=== PATIENT | female | born 1990 | race African-American/Black ===

== ENCOUNTER 2017-06-20 16:21 | Emergency (ER) | payer SELFPAY ==
--- NOTE | 2017-06-20 19:51 | RAD ---
TWO VIEWS NECK SOFT TISSUES: Date: 06-20-17 History: Right neck swelling and pain since one day ago. FINDINGS: Prevertebral soft tissues are within normal limits. No radiopaque foreign body is seen. There are ga s densities seen anterior to the T1-2 level which project above the level of the clavicles and are s een posterior to the tracheal air shadow. Findings may be related to herniation of each lung apex dorsey periorly. Osseous structures are intact. IMPRESSION: 1. No acute findings are noted. 2. Metallic densities overlying upper chest which could be related to overlying artifact. Clinical c orrelation is recommended as these metallic densities project slightly posterior to the sternum on l ateral view. 3. No radiopaque foreign body or other soft tissue abnormality is seen. Epiglottis and aryepiglottic folds have a normal appearance. POS: [facility]
== END 2017-06-20 19:30 | disposition home or self-care (01) ==
LOC: ERS 16:21
DX: J02.9 Acute pharyngitis, unspecified (principal)
CPT/HCPCS: 70360; 87081; 87430

== ENCOUNTER 2017-12-15 22:30 | Emergency (ER) | payer OTHER, SELFPAY ==
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
[2017-12-15 23:39] LABS: #Basophils 0.1 thou/uL (0.0-0.2); #Lymphocytes 2.3 thou/uL (1.20-3.40); #Monocytes 0.3 thou/uL (0.11-0.59); #Neutrophils 7.4 thou/uL (1.40-6.50); %Eosinophils 0.4 % (0.0-10.0); %Lymphocytes 22.5 % (21.0-51.0); %Monocytes 3.3 % (0.0-10.0); %Neutrophils 72.9 % (42.0-75.0); Mean Corpuscular HGB CONC 32.8 g/dL (32.0-36.0); Mean Corpuscular Hemoglobin 27.6 pg (27.0-31.0); Mean Corpuscular Volume 84.2 fl (81.0-99.0); Mean Platelet Volume 6.7 fL (7.4-10.4); Platelet Count 260 thou/uL (130-400); RBC Distribution Width 12.4 % (11.5-14.5); Red Blood Cell (RBC) Count 4.35 mill/uL (4.20-5.40); White Blood Cell (WBC) Count 10.2 thou/uL (4.8-10.8)
[2017-12-15] MEDS ORDERED: Ondansetron HCl/PF 4 MG/2 ML Vial ONE (23:40)
[2017-12-15] MEDS ORDERED: Morphine 10 MG/ML VIAL ONE (23:40)
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
[2017-12-16] LABS: ALT (SGPT) 13 U/L (8-55); AST (SGOT) 15 U/L (5-34); Albumin 4.7 g/dL (3.5-5.0); Alkaline Phosphatase 43 U/L (40-150); Anion Gap 11 mmol/L (10-20); BUN (Urea Nitrogen) 12 mg/dL (7.0-18.7); Bilirubin, Total 1.2 mg/dL (0.2-1.2); Calc. Creatinine Clearance 0 mL/min (70-130); Calcium 9.6 mg/dL (7.8-10.44); Carbon Dioxide 26 mmol/L (22-29); Chloride 106 mmol/L (98-107); Estimated GFR-MDRD Greater than 90; Globulin 2.8 g/dL (2.4-3.5); Glucose 97 mg/dL (70-105); Potassium 3.6 mmol/L (3.5-5.1); Protein, Total 7.5 g/dL (6.0-8.3); Sodium 139 mmol/L (136-145)
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
[2017-12-16] MEDS ORDERED: Morphine 4 MG/ML VIAL ONE (00:09)
[2017-12-16 00:50] LABS: BHCG - Serum Negative (NEGATIVE); Pregs Control Background? CLEAR/WHITE (CLR/WHITE); Pregs Control Bar Appear? YES (CONTROL BAR)
[2017-12-16] MEDS ORDERED: Adacel (T-DAP) 0.5 ML VIAL ONE (01:01)
[2017-12-16] MEDS ORDERED: Ketorolac Tromethamine 30 MG/ML VIAL ONE (01:28)
[2017-12-16] MEDS ORDERED: Bacitracin Zinc 1 Packet ONE (02:08)
== END 2017-12-16 03:15 | disposition home or self-care (01) ==
LOC: ERS 22:30
DX: S01.112A Laceration without foreign body of left eyelid and periocular area, initial encounter (principal); S50.01XA Contusion of right elbow, initial encounter; V43.62XA Car passenger injured in collision with other type car in traffic accident, initial encounter
CPT/HCPCS: 12013; 70486; 72125; 80053; 84703; 85025; 90471; 90715; 96361; 96374; 96375; J1885; J2270; J2405

== ENCOUNTER 2017-12-23 16:28 | Emergency (ER) | payer OTHER, SELFPAY ==
[2017-12-23] MEDS ORDERED: Bacitracin Zinc 1 Packet ONE (16:52)
== END 2017-12-23 16:53 | disposition home or self-care (01) ==
LOC: ERS 16:28
DX: S01.112D Laceration without foreign body of left eyelid and periocular area, subsequent encounter (principal)

== ENCOUNTER 2018-04-10 15:37 | Emergency (ER) | payer SELFPAY ==
[2018-04-10 16:51] LABS: Bilirubin Negative (Negative); Blood, Urine Negative (Negative); Clarity CLEAR (Clear); Glucose, Urine (Dipstick) Negative (Negative); Leukocyte Negative (Negative); Nitrite Negative (Negative); Protein, Urine (Dipstick) Negative (Neg-Trace); Specific Gravity, Urine 1.022 (1.002-1.036); pH, Urine 7.5 (5.0-9.0)
[2018-04-10 16:53] LABS: Pregnancy Test - Urine (BHCG) Negative (Negative); Pregu Control Background? CLEAR/WHITE (CLR/WHITE); Pregu Control Bar Appear? YES (CONTROL BAR); Specific Gravity 1.022 (1.002-1.036)
[2018-04-10 17:34] LABS: #Basophils 0.1 thou/uL (0.0-0.2); #Lymphocytes 2.8 thou/uL (1.20-3.40); #Monocytes 0.4 thou/uL (0.11-0.59); #Neutrophils 4.6 thou/uL (1.40-6.50); %Eosinophils 0.5 % (0.0-10.0); %Lymphocytes 35.4 % (21.0-51.0); %Neutrophils 58.1 % (42.0-75.0); Hemoglobin 12.5 g/dL (12.0-16.0); Mean Corpuscular HGB CONC 33.2 g/dL (32.0-36.0); Mean Corpuscular Volume 84.1 fL (78.0-98.0); Mean Platelet Volume 6.3 fL (7.4-10.4); Platelet Count 255 thou/uL (130-400); RBC Distribution Width 12.4 % (11.5-14.5); Red Blood Cell (RBC) Count 4.47 mill/uL (4.20-5.40)
[2018-04-10 17:58] LABS: ALT (SGPT) 28 U/L (8-55); AST (SGOT) 21 U/L (5-34); Albumin 4.4 g/dL (3.5-5.0); Alkaline Phosphatase 48 U/L (40-150); Anion Gap 11 mmol/L (10-20); BUN (Urea Nitrogen) 11 mg/dL (7.0-18.7); Bilirubin, Total 1.3 mg/dL (0.2-1.2); Calc. Creatinine Clearance 0 mL/min (70-130); Calcium 9.1 mg/dL (7.8-10.44); Carbon Dioxide 24 mmol/L (22-29); Chloride 107 mmol/L (98-107); Estimated GFR-MDRD Greater than 90; Globulin 3.2 g/dL (2.4-3.5); Glucose 77 mg/dL (70-105); Lipase 48 U/L (8-78); Protein, Total 7.6 g/dL (6.0-8.3); Sodium 138 mmol/L (136-145)
--- NOTE | 2018-04-10 22:23 | ULT ---
PELVIC ULTRASOUND WITH DOPPLER: HISTORY: Pelvic pain. TECHNIQUE: Transabdominal, transvaginal, winslow-scale, color-flow, and spectral Doppler. FINDINGS: The uterus measures 8.2 x 3.9 x 4.4 cm without focal mass or endometrial fluid. The endometrium emilia ures 6 mm in thickness. The right ovary measures 2.8 x 1.6 x 1.9 cm, and the left ovary measures 2.9 x 2.5 x 2.3 cm. A 1 cm cyst is seen in the right ovary. Flow is demonstrated in both ovaries. There is a tiny amount of fr ee fluid in the cul-de-sac. IMPRESSION: Tiny amount of free fluid in the pelvis; otherwise, unremarkable examination. POS: [facility]
[2018-04-10] MEDS ORDERED: cefTRIAXone\\ROCEPHIN 1 GM VIAL ONE (23:07)
[2018-04-10] MEDS ORDERED: Azithromycin 500 MG VIAL ONE (23:07)
[2018-04-10] MEDS ORDERED: Azithromycin 250 MG TAB ONE (23:08)
[2018-04-10] MEDS ORDERED: Lidocaine 1% PF 5 ML VIAL ONE (23:10)
[2018-04-11 23:04] LABS: Chlamydia by PCR Not Detected (NotDetected); GC by PCR Not Detected (NotDetected)
== END 2018-04-10 23:37 | disposition home or self-care (01) ==
LOC: ERS 15:37
DX: R10.2 Pelvic and perineal pain (principal)
CPT/HCPCS: 36415; 76856; 80053; 81003; 81025; 83690; 85025; 87480; 87491; 87510; 87591; 87660; 93976; 96372; J0456; J0696; J2001

== ENCOUNTER 2018-09-29 19:10 | Emergency (ER) | payer SELFPAY ==
[2018-09-29 20:02] LABS: Bilirubin Negative (Negative); Blood, Urine Trace (Negative); Clarity TURBID (Clear); Glucose, Urine (Dipstick) Negative (Negative); Leukocyte Negative (Negative); Nitrite Negative (Negative); Protein, Urine (Dipstick) Negative (Neg-Trace); Specific Gravity, Urine 1.024 (1.002-1.036)
[2018-09-29 20:04] LABS: Pregnancy Test - Urine (BHCG) Negative (Negative); Pregu Control Background? CLEAR/WHITE (CLR/WHITE); Pregu Control Bar Appear? YES (CONTROL BAR); Specific Gravity 1.024 (1.002-1.036)
[2018-09-29 20:05] LABS: Bacteria/HPF None Seen HPF (None Seen); Hyaline Casts/LPF 0-3 HYALINE CAST LPF (0-3 Hyaline); Pathc Cast-AUWi Flag 0.29 (0-2.49); Squamous Epithelial 0-3 HPF (0-3); WBC/HPF 0-3 HPF (0-3)
== END 2018-09-29 20:47 | disposition home or self-care (01) ==
LOC: ERS 19:10
DX: N93.9 Abnormal uterine and vaginal bleeding, unspecified (principal)
CPT/HCPCS: 81003; 81015; 81025; 99284

== ENCOUNTER 2019-05-23 11:44 | Emergency (ER) | payer SELFPAY ==
[2019-05-23 12:11] LABS: #Basophils 0.1 thou/uL (0.0-0.2); #Eosinphils 0.1 thou/uL (0.0-0.7); #Lymphocytes 3.1 thou/uL (1.20-3.40); #Monocytes 0.4 thou/uL (0.11-0.59); #Neutrophils 4.4 thou/uL (1.40-6.50); %Basophils 1.3 % (0.0-1.0); %Eosinophils 0.7 % (0.0-10.0); %Lymphocytes 38.4 % (21.0-51.0); %Monocytes 5.3 % (0.0-10.0); %Neutrophils 54.3 % (42.0-75.0); Hemoglobin 12.9 g/dL (12.0-16.0); Mean Corpuscular HGB CONC 33.1 g/dL (32.0-36.0); Mean Corpuscular Hemoglobin 27.9 pg (27.0-31.0); Mean Corpuscular Volume 84.3 fL (78.0-98.0); Mean Platelet Volume 7.1 fL (7.4-10.4); Platelet Count 250 thou/uL (130-400); RBC Distribution Width 12.4 % (11.5-14.5); Red Blood Cell (RBC) Count 4.61 mill/uL (4.20-5.40); White Blood Cell (WBC) Count 8.1 thou/uL (4.8-10.8)
[2019-05-23 12:18] LABS: Bacteria/HPF None Seen HPF (None Seen); Bilirubin Negative (Negative); Blood, Urine 1+ (Negative); Clarity Clear (Clear); Glucose, Urine (Dipstick) Normal (Negative); Leukocyte Negative Leu/uL (Negative); Nitrite Negative (Negative); Protein, Urine (Dipstick) Negative (Neg-Trace); RBC/HPF 0-3 HPF (0-3); Squamous Epithelial 0-3 HPF (0-3); Urobilinogen Normal mg/dL (Less than 2); WBC/HPF 0-3 HPF (0-3)
[2019-05-23 12:22] LABS: Pregnancy Test - Urine (BHCG) Negative (Negative); Pregu Control Background? CLEAR/WHITE (CLR/WHITE); Pregu Control Bar Appear? YES (CONTROL BAR); Specific Gravity 1.021 (1.002-1.036)
[2019-05-23 12:35] LABS: ALT (SGPT) 12 U/L (8-55); AST (SGOT) 14 U/L (5-34); Albumin 4.5 g/dL (3.5-5.0); Alkaline Phosphatase 42 U/L (40-150); Anion Gap 11 mmol/L (10-20); BUN (Urea Nitrogen) 7 mg/dL (7.0-18.7); Bilirubin, Total 1.1 mg/dL (0.2-1.2); Calc. Creatinine Clearance 0 mL/min (70-130); Calcium 9.5 mg/dL (7.8-10.44); Carbon Dioxide 24 mmol/L (22-29); Chloride 104 mmol/L (98-107); Estimated GFR-MDRD Greater than 90; Globulin 2.6 g/dL (2.4-3.5); Glucose 83 mg/dL (70-105); Lipase 41 U/L (8-78); Potassium 3.5 mmol/L (3.5-5.1); Protein, Total 7.1 g/dL (6.0-8.3); Sodium 135 mmol/L (136-145)
[2019-05-23] MEDS ORDERED: Sucralfate 1 GM/10 ML UDCUP ONE (13:57)
[2019-05-23] MEDS ORDERED: Acetaminophen 500 MG TAB ONE (14:40)
== END 2019-05-23 14:45 | disposition home or self-care (01) ==
LOC: ERS 11:44
DX: R10.12 Left upper quadrant pain (principal); R10.11 Right upper quadrant pain; R19.7 Diarrhea, unspecified; R11.0 Nausea
CPT/HCPCS: 36415; 80053; 81003; 81015; 81025; 83690; 85025; 99284

== ENCOUNTER 2019-09-10 18:32 | Emergency (ER) | payer SELFPAY | END 2019-09-10 20:02 | disposition home or self-care (01) | LOC: ERS 18:32 | DX: M65.4 Radial styloid tenosynovitis [de Quervain] (principal) | CPT/HCPCS: 87804; 99283 ==

== ENCOUNTER 2020-07-24 08:47 | Emergency (ER) | payer SELFPAY ==
[2020-07-24] MEDS ORDERED: Ketorolac Tromethamine 30 MG/ML VIAL ONE (10:24)
[2020-07-24 10:58] LABS: BHCG - Serum Negative (NEGATIVE); Pregs Control Background? CLEAR/WHITE (CLR/WHITE); Pregs Control Bar Appear? YES (CONTROL BAR)
[2020-07-24 11:04] LABS: ALT (SGPT) 7 U/L (8-55); AST (SGOT) 15 U/L (5-34); Albumin 4.2 g/dL (3.5-5.0); Alkaline Phosphatase 36 U/L (40-110); Anion Gap 12 mmol/L (10-20); BUN (Urea Nitrogen) 10 mg/dL (7.0-18.7); Bilirubin, Total 1.2 mg/dL (0.2-1.2); Calc. Creatinine Clearance 0 mL/min (70-130); Calcium 9.1 mg/dL (7.8-10.44); Carbon Dioxide 26 mmol/L (22-29); Chloride 104 mmol/L (98-107); Estimated GFR-MDRD Greater than 90; Glucose 86 mg/dL (70-105); Lipase 27 U/L (8-78); Potassium 4.2 mmol/L (3.5-5.1); Protein, Total 7.2 g/dL (6.0-8.3); Sodium 138 mmol/L (136-145)
[2020-07-24 11:13] LABS: Bilirubin Negative (Negative); Blood, Urine Negative (Negative); Clarity Clear (Clear); Glucose, Urine (Dipstick) Normal (Negative); Ketone, Urine Negative (Negative); Leukocyte Negative Leu/uL (Negative); Nitrite Negative (Negative); Protein, Urine (Dipstick) Negative (Neg-Trace); Specific Gravity, Urine 1.012 (1.002-1.036); Urobilinogen Normal mg/dL (Less than 2)
[2020-07-24 11:22] LABS: Band 1 % (5-11); Eosinophils 2 % (0-10); Hemoglobin 12.9 g/dL (12.0-16.0); Lymphocytes 37 % (21-51); MDiff Complete? YES; Mean Corpuscular HGB CONC 32.3 g/dL (32.0-36.0); Mean Corpuscular Hemoglobin 27.8 pg (27.0-31.0); Mean Corpuscular Volume 86.2 fL (78.0-98.0); Mean Platelet Volume 7.5 fL (7.4-10.4); Monocytes 4 % (0-10); Neutrophil 56 % (42-75); Platelet Count 242 thou/uL (130-400); RBC Distribution Width 12.2 % (11.5-14.5); RBC Morphology Normal; Red Blood Cell (RBC) Count 4.62 mill/uL (4.20-5.40); White Blood Cell (WBC) Count 6.1 thou/uL (4.8-10.8)
--- NOTE | 2020-07-24 11:26 | CT ---
Exam: Abdomen CT without contrast Pelvic CT without contrast HISTORY: Abdominal pain, starting this morning. COMPARISON: None FINDINGS: Abdomen CT: Lung bases:Clear Heart size: Normal heart size Aorta: Normal caliber Solid organs: Limited evaluation by the absence of IV contrast. Grossly no solid organ abnormal bowel Lymph nodes: No gastrohepatic, retrocrural or periportal lymphadenopathy Gallbladder: No CT evidence of cholecystitis Mesentery: No mass, lymphadenopathy, free air or free fluid Kidneys: Bilaterally, no hydronephrosis,, right-sided nephrolithiasis or perinephric fat stranding. B ilateral ureters have a normal caliber. No hydroureter, periureteral fat stranding or ureterolithiasis. Nonobstructing calculi in the left renal pelvis measuring between 0.2 and 0.3 cm. Alimentary canal: Limited evaluation by the lack of oral contrast. Normal caliber bowel loops. Normal ileocecal junction. Normal caliber appendix. Note, cecal apex is low-lying of the appendix is advanced in the left lower quadrant. Scattered fecal material in a nondistended, nondilated colon. CT PELVIS: There is a small amount of complex fluid in the right hemipelvis with attenuation coefficient of 29 H ounsfield units. Grossly unremarkable uterus and left adnexa. There are hypodensities in the right adnexa which may represent right ovarian cyst, measuring 3.0 x 2.5 cm. Urinary bladder: Unremarkable. Osseous structures: No lytic or blastic lesions IMPRESSION: 1. Normal caliber appendix 2. Nonobstructing left renal calculi 3. Hypodensity in the right adnexa with complex fluid in the right hemipelvis. Correlate for possible rupture the ovarian cyst with pelvic ultrasound.
--- NOTE | 2020-07-24 12:27 | ULT ---
Exam: Pelvic ultrasound HISTORY: Abnormal CT abdomen and pelvis demonstrating low density lesion right adnexa. COMPARISON: Noncontrast CT abdomen and pelvis on 07/24/2020 and prior pelvic ultrasound 04/10/2018. TECHNIQUE: Multiple grayscale and color Doppler images were obtained in a transabdominal pelvic ultra sound. Spectral analysis of the Doppler waveforms of the ovaries were performed. FINDINGS: CERVIX: Unremarkable UTERUS: Normal in size without focal abnormality. ENDOMETRIAL STRIPE: 13 mm which is within normal limits for a normal menstruating female patient. No fluid or fluid collection is seen in the endometrial canal. No free fluid is appreciated in the pelvis on this examination correspond to complex fluid in the pos terior right aspect of the pelvis on recent CT exam. RIGHT OVARY: Normal flow. A small 2.7 cm oval-shaped anechoic structure is seen in the right ovary wi th characteristics suggestive of a cyst. LEFT OVARY: Normal flow, without focal mass. IMPRESSION: 1. Small right ovarian cyst with flow demonstrated in the right ovary. 2. Normal-appearing left ovary. 3. No free fluid is seen on pelvic ultrasound is suggested on the recent CT exam. This could be relat ed to difficulty in visualization given more posteriorly located fluid on the CT exam.
== END 2020-07-24 13:03 | disposition home or self-care (01) ==
LOC: ERS 08:47
DX: N83.201 Unspecified ovarian cyst, right side (principal)
CPT/HCPCS: 36415; 74176; 76856; 80053; 81003; 83690; 84703; 85025; 93976; 96374; J1885

== ENCOUNTER 2021-07-08 07:06 | Emergency (ER) | payer SELFPAY ==
[2021-07-08] MEDS ORDERED: Meclizine HCl 25 MG TAB ONE (07:50)
[2021-07-08] MEDS ORDERED: Ketorolac Tromethamine 30 MG/ML VIAL ONE (07:50)
[2021-07-08] MEDS ORDERED: Metoclopramide 10 MG/10 ML UDCUP ONE (07:50)
[2021-07-08] MEDS ORDERED: Metoclopramide HCl 10 MG/2 ML VIAL ONE (07:51)
[2021-07-08 08:11] LABS: #Basophils 0.1 thou/uL (0.0-0.2); #Eosinphils 0.1 thou/uL (0.0-0.7); #Monocytes 0.4 thou/uL (0.11-0.59); #Neutrophils 6.1 thou/uL (1.40-6.50); %Basophils 1.1 % (0.0-1.0); %Eosinophils 0.8 % (0.0-10.0); %Lymphocytes 22.8 % (21.0-51.0); %Monocytes 4.3 % (0.0-10.0); Hemoglobin 14.2 g/dL (12.0-16.0); Mean Corpuscular HGB CONC 33.6 g/dL (32.0-36.0); Mean Corpuscular Hemoglobin 28.5 pg (27.0-31.0); Mean Corpuscular Volume 84.9 fL (78.0-98.0); Mean Platelet Volume 6.9 fL (7.4-10.4); Platelet Count 266 thou/uL (130-400); Red Blood Cell (RBC) Count 4.98 mill/uL (4.20-5.40); White Blood Cell (WBC) Count 8.6 thou/uL (4.8-10.8)
[2021-07-08 08:36] LABS: ALT (SGPT) 16 U/L (8-55); AST (SGOT) 14 U/L (5-34); Albumin 4.8 g/dL (3.5-5.0); Alkaline Phosphatase 40 U/L (40-110); Anion Gap 12 mmol/L (10-20); BUN (Urea Nitrogen) 10 mg/dL (7.0-18.7); Bilirubin, Total 1.6 mg/dL (0.2-1.2); Calc. Creatinine Clearance 0 mL/min (70-130); Calcium 9.8 mg/dL (7.8-10.44); Carbon Dioxide 27 mmol/L (22-29); Chloride 103 mmol/L (98-107); Globulin 3.3 g/dL (2.4-3.5); Glucose 90 mg/dL (70-105); Potassium 3.6 mmol/L (3.5-5.1); Protein, Total 8.1 g/dL (6.0-8.3); Sodium 138 mmol/L (136-145)
== END 2021-07-08 09:30 | disposition home or self-care (01) ==
LOC: ERS 07:06
DX: R07.81 Pleurodynia (principal); R42 Dizziness and giddiness; R51.9 Headache, unspecified; R10.30 Lower abdominal pain, unspecified
CPT/HCPCS: 36416; 70450; 71045; 80053; 84484; 85025; 93005; J1885; J2765

== ENCOUNTER 2022-05-24 09:03 | Emergency (ER) | payer SELFPAY ==
[2022-05-24] MEDS ORDERED: Dexameth. Sod Phosp. 10 MG/ML (CHEMO USE ONLY) ONE (10:18)
== END 2022-05-24 10:15 | disposition home or self-care (01) ==
LOC: ERS 09:03
DX: J02.9 Acute pharyngitis, unspecified (principal)
CPT/HCPCS: 87430; 99283; J1100

== ENCOUNTER 2023-05-02 18:11 | Emergency (ER) | payer SELFPAY ==
[2023-05-02 19:00] LABS: #Eosinphils 0.1 thou/uL (0.0-0.7); #Monocytes 0.5 thou/uL (0.11-0.59); #Neutrophils 4.6 thou/uL (1.40-6.50); %Basophils 0.5 % (0.0-1.0); %Eosinophils 0.9 % (0.0-10.0); %Monocytes 5.6 % (0.0-10.0); %Neutrophils 53.8 % (42.0-75.0); Hematocrit 37.5 % (36.0-47.0); Hemoglobin 12.6 g/dL (12.0-16.0); Mean Corpuscular HGB CONC 33.6 g/dL (32.0-36.0); Mean Corpuscular Hemoglobin 28.4 pg (27.0-31.0); Mean Corpuscular Volume 84.7 fl (78.0-98.0); Mean Platelet Volume 9.1 fL (7.4-10.4); Platelet Count 267 10x3/uL (130-400); RBC Distribution Width 12.8 % (11.5-14.5); Red Blood Cell (RBC) Count 4.43 mill/uL (4.20-5.40); White Blood Cell (WBC) Count 8.6 10x3/uL (4.8-10.8)
[2023-05-02 19:18] LABS: Bilirubin Negative (Negative); Blood, Urine Trace (Negative); CAUTI Indications for Culture Dysuria,urgency,freq; Clarity Clear (Clear); Glucose, Urine (Dipstick) Normal (Negative); Ketone, Urine Negative (Negative); Leukocyte Negative Leu/uL (Negative); Nitrite Negative (Negative); Protein, Urine (Dipstick) Negative (Neg-Trace); RBC/HPF 0-3 HPF (0-3); Specific Gravity, Urine 1.014 (1.002-1.036); Squamous Epithelial 0-3 HPF (0-3); Urobilinogen Normal mg/dL (Less than 2); WBC/HPF 0-3 HPF (0-3)
[2023-05-02 19:24] LABS: Pregnancy Test - Urine (BHCG) Negative (Negative); Pregu Control Background? CLEAR/WHITE (CLR/WHITE); Pregu Control Bar Appear? YES (CONTROL BAR); Specific Gravity 1.014 (1.002-1.036)
[2023-05-02 19:28] LABS: Bacteria/HPF Rare-Few HPF (None Seen); Urine Culture Reflex No No
[2023-05-02 19:30] LABS: ALT (SGPT) 13 U/L (8-55); AST (SGOT) 17 U/L (5-34); Albumin 4.3 g/dL (3.5-5.0); Alkaline Phosphatase 38 U/L (40-110); Anion Gap 12 mmol/L (10-20); BUN (Urea Nitrogen) 8 mg/dL (7.0-18.7); Calc. Creatinine Clearance 0 mL/min (70-130); Calcium 9.5 mg/dL (7.8-10.44); Carbon Dioxide 26 mmol/L (22-29); Chloride 107 mmol/L (98-107); Estimated GFR 117; Globulin 2.8 g/dL (2.4-3.5); Glucose 93 mg/dL (70-105); Potassium 4.3 mmol/L (3.5-5.1); Protein, Total 7.1 g/dL (6.0-8.3); Sodium 141 mmol/L (136-145)
[2023-05-02] MEDS ORDERED: Ondansetron ODT 4 MG TAB ONE (19:31)
[2023-05-02] MEDS ORDERED: Acetaminophen 500 MG TAB ONE (19:31)
[2023-05-02 20:32] LABS: SARS-CoV-2 NAA Rapid Test Not Detected (NotDetected)
== END 2023-05-02 20:37 | disposition home or self-care (01) ==
LOC: ERS 18:11
DX: R11.2 Nausea with vomiting, unspecified (principal); R51.9 Headache, unspecified; N94.6 Dysmenorrhea, unspecified; Z20.822 Contact with and (suspected) exposure to COVID-19
CPT/HCPCS: 36415; 76856; 80053; 81001; 81025; 84443; 85025; Q0162

== ENCOUNTER 2023-11-02 08:13 | Emergency (ER) | payer SELFPAY ==
[2023-11-02 09:41] LABS: #Monocytes 0.5 thou/uL (0.11-0.59); #Neutrophils 8.2 thou/uL (1.40-6.50); %Basophils 0.3 % (0.0-1.0); %Eosinophils 0.4 % (0.0-10.0); %Lymphocytes 15.8 % (21.0-51.0); %Monocytes 4.9 % (0.0-10.0); %Neutrophils 78.4 % (42.0-75.0); Hematocrit 38.3 % (36.0-47.0); Hemoglobin 12.7 g/dL (12.0-16.0); Mean Corpuscular HGB CONC 33.2 g/dL (32.0-36.0); Mean Corpuscular Hemoglobin 28.5 pg (27.0-31.0); Mean Corpuscular Volume 86.1 fl (78.0-98.0); Mean Platelet Volume 8.8 fL (7.4-10.4); Platelet Count 262 10x3/uL (130-400); RBC Distribution Width 12.8 % (11.5-14.5); Red Blood Cell (RBC) Count 4.45 mill/uL (4.20-5.40); White Blood Cell (WBC) Count 10.5 10x3/uL (4.8-10.8)
[2023-11-02 09:58] LABS: BHCG - Serum Negative (NEGATIVE); Pregs Control Background? CLEAR/WHITE (CLR/WHITE); Pregs Control Bar Appear? YES (CONTROL BAR)
[2023-11-02 10:15] LABS: SARS-CoV-2 NAA Rapid Test Not Detected (NotDetected)
[2023-11-02 10:45] LABS: Bacteria/HPF None Seen HPF (None Seen); Bilirubin Negative (Negative); Blood, Urine Negative (Negative); CAUTI Indications for Culture Pelvic or flank pain; Clarity Clear (Clear); Glucose, Urine (Dipstick) Normal (Negative); Ketone, Urine Negative (Negative); Leukocyte Negative Leu/uL (Negative); Nitrite Negative (Negative); Protein, Urine (Dipstick) Negative (Neg-Trace); RBC/HPF 0-3 HPF (0-3); Specific Gravity, Urine 1.013 (1.002-1.036); Squamous Epithelial 0-3 HPF (0-3); Urobilinogen Normal mg/dL (Less than 2); WBC/HPF 0-3 HPF (0-3); pH, Urine 7.5 (5.0-9.0)
[2023-11-02 10:48] LABS: Urine Culture Reflex No No
[2023-11-02 10:56] LABS: ALT (SGPT) 15 U/L (8-55); AST (SGOT) 17 U/L (5-34); Alkaline Phosphatase 37 U/L (40-110); Anion Gap 11 mmol/L (10-20); BUN (Urea Nitrogen) 7 mg/dL (7.0-18.7); Bilirubin, Total 1.1 mg/dL (0.2-1.2); Calc. Creatinine Clearance 0 mL/min (70-130); Calcium 8.8 mg/dL (7.8-10.44); Carbon Dioxide 25 mmol/L (22-29); Chloride 105 mmol/L (98-107); Estimated GFR 120; Globulin 2.8 g/dL (2.4-3.5); Glucose 98 mg/dL (70-105); Lipase 20 U/L (8-78); Potassium 3.8 mmol/L (3.5-5.1); Protein, Total 6.8 g/dL (6.0-8.3); Sodium 137 mmol/L (136-145)
== END 2023-11-02 11:22 | disposition home or self-care (01) ==
LOC: ERS 08:13
DX: J06.9 Acute upper respiratory infection, unspecified (principal); R03.0 Elevated blood-pressure reading, without diagnosis of hypertension
CPT/HCPCS: 36415; 71045; 80053; 81001; 83690; 84703; 85025; 85379; 93005

== ENCOUNTER 2024-06-18 20:02 | Observation (INO) | payer SELFPAY ==
[~2024-06-18 20:02] MED LIST: Iopamidol-370 76% 500 ML MDV (1 ML CHARGE) ONE
[2024-06-18 21:11] LABS: #Basophils 0.03 10x3/uL (0.0-0.2); %Basophils 0.3 % (0.0-1.0); %Eosinophils 0.9 % (0.0-10.0); %Monocytes 6.3 % (0.0-10.0); %Neutrophils 59.3 % (42.0-75.0); Hematocrit 38.2 % (36.0-47.0); Hemoglobin 12.3 g/dL (12.0-16.0); Mean Corpuscular HGB CONC 32.2 g/dL (32.0-36.0); Mean Corpuscular Hemoglobin 27.7 pg (27.0-31.0); Mean Platelet Volume 8.9 fL (7.4-10.4); Platelet Count 288 10x3/uL (130-400); RBC Distribution Width 12.7 % (11.5-14.5); Red Blood Cell (RBC) Count 4.44 mill/uL (4.20-5.40)
[2024-06-18 21:32] LABS: ALT (SGPT) 15 U/L (8-55); AST (SGOT) 14 U/L (5-34); Albumin 3.9 g/dL (3.5-5.0); Alkaline Phosphatase 40 U/L (40-110); Anion Gap 14 mmol/L (10-20); BUN (Urea Nitrogen) 15 mg/dL (7.0-18.7); Calc. Creatinine Clearance 0 mL/min (70-130); Calcium 9.1 mg/dL (7.8-10.44); Carbon Dioxide 23 mmol/L (22-29); Chloride 105 mmol/L (98-107); Estimated GFR 114; Globulin 2.9 g/dL (2.4-3.5); Glucose 85 mg/dL (70-105); Potassium 4.1 mmol/L (3.5-5.1); Protein, Total 6.8 g/dL (6.0-8.3); Sodium 138 mmol/L (136-145)
[2024-06-18 21:35] LABS: Bacteria/HPF None Seen HPF (None Seen); Bilirubin Negative (Negative); Blood, Urine 2+ (Negative); CAUTI Indications for Culture Acute Hematuria; Clarity Clear (Clear); Glucose, Urine (Dipstick) Normal (Negative); Ketone, Urine Negative (Negative); Leukocyte Negative Leu/uL (Negative); Nitrite Negative (Negative); Protein, Urine (Dipstick) Negative (Neg-Trace); RBC/HPF 0-3 HPF (0-3); Specific Gravity, Urine 1.024 (1.002-1.036); Squamous Epithelial 0-3 HPF (0-3); Urobilinogen Normal mg/dL (Less than 2); WBC/HPF None Seen HPF (0-3); pH, Urine 5.5 (5.0-9.0)
[2024-06-18 21:37] LABS: Urine Culture Reflex No No
[2024-06-18 21:55] LABS: BHCG - Serum Negative (NEGATIVE); Pregs Control Background? CLEAR/WHITE (CLR/WHITE); Pregs Control Bar Appear? YES (CONTROL BAR)
[2024-06-18] MEDS ORDERED: Ondansetron PF 4 MG/2 ML Vial ONE (22:09)
[2024-06-18] MEDS ORDERED: Ketorolac Tromethamine 30 MG (1 mL) VIAL ONE (22:09)
[2024-06-19] MEDS ORDERED: hydrALAZINE 20 MG/ML VIAL SLOW IVP PRN (01:12)
[2024-06-19] MEDS ORDERED: Glucagon 1 MG/ML KIT IM PRN (01:12)
[2024-06-19] MEDS ORDERED: Promethazine HCl 25 MG/ML VIAL IM PRN (01:12)
[2024-06-19] MEDS ORDERED: Morphine 4 MG/ML VIAL SLOW IVP PRN (01:12)
[2024-06-19] MEDS ORDERED: Dextrose 5% in Water 1,000 ML IV PRN (01:12)
[2024-06-19] MEDS ORDERED: Dextrose 50% Abboject 50 ML SYRINGE SLOW IVP PRN (01:12)
[2024-06-19 03:12] VITALS: BMI 23.3
[2024-06-19] MEDS: Piperacillin/Tazobactam 3.375 GM in Sodium Chloride 0.9% 100 ML IVPB SCH ×2 (04:23→08:56)
[2024-06-19] MEDS: Acetaminophen 325 MG TAB PO PRN (04:24)
[2024-06-19] MEDS: Sodium Chloride 0.9% 1,000 ML IV SCH (04:24)
[2024-06-19 05:38] LABS: #Basophils 0.03 10x3/uL (0.0-0.2); %Basophils 0.3 % (0.0-1.0); %Eosinophils 0.8 % (0.0-10.0); %Lymphocytes 33.1 % (21.0-51.0); %Monocytes 5.2 % (0.0-10.0); %Neutrophils 60.4 % (42.0-75.0); Hematocrit 34.1 % (36.0-47.0); Hemoglobin 11.2 g/dL (12.0-16.0); Mean Corpuscular HGB CONC 32.8 g/dL (32.0-36.0); Mean Corpuscular Hemoglobin 28.1 pg (27.0-31.0); Mean Corpuscular Volume 85.5 fL (78.0-98.0); Mean Platelet Volume 8.9 fL (7.4-10.4); Platelet Count 255 10x3/uL (130-400); RBC Distribution Width 12.8 % (11.5-14.5); Red Blood Cell (RBC) Count 3.99 mill/uL (4.20-5.40)
[2024-06-19 06:17] LABS: ALT (SGPT) 12 U/L (8-55); AST (SGOT) 11 U/L (5-34); Albumin 3.4 g/dL (3.5-5.0); Alkaline Phosphatase 34 U/L (40-110); Anion Gap 10 mmol/L (10-20); Bilirubin, Total 1.2 mg/dL (0.2-1.2); Calc. Creatinine Clearance 120 mL/min (70-130); Calcium 8.2 mg/dL (7.8-10.44); Carbon Dioxide 26 mmol/L (22-29); Chloride 107 mmol/L (98-107); Estimated GFR 118; Globulin 2.4 g/dL (2.4-3.5); Glucose 85 mg/dL (70-105); Potassium 3.4 mmol/L (3.5-5.1); Protein, Total 5.8 g/dL (6.0-8.3); Sodium 140 mmol/L (136-145)
[2024-06-19 06:51] LABS: BUN (Urea Nitrogen) 10 mg/dL (7.0-18.7)
[2024-06-19] MEDS: traMADol HCl 50 MG TAB PO PRN (08:56)
[2024-06-19] MEDS: Famotidine/PF 20 mg/2ml Vial SLOW IVP SCH (08:56)
[2024-06-19] MEDS: Ondansetron PF 4 MG/2 ML Vial IVP PRN (10:51)
[2024-06-19] MEDS ORDERED: Sodium Chloride 0.9% 100 ML ONE (14:51)
[2024-06-19] MEDS ORDERED: cefOXitin 2 GM VIAL ONE (14:51)
[2024-06-19] MEDS ORDERED: Promethazine HCl 25 MG/ML VIAL ONE (15:18)
[2024-06-19] MEDS ORDERED: EPINEPHrine 1 MG/ML VIAL ONE (17:42)
[2024-06-19] MEDS ORDERED: Bupivacaine PF 0.5% 30 ML VIAL ONE (17:43)
[2024-06-19] MEDS ORDERED: fentaNYL PF 100 MCG/2 ML SYRINGE ONE (18:24)
[2024-06-19] MEDS ORDERED: Ondansetron PF 4 MG/2 ML Vial ONE ×2 (18:24→21:17)
[2024-06-19] MEDS ORDERED: PROPOFOL 20 ML ONE (18:24)
[2024-06-19] MEDS ORDERED: SUCCINYLCHOLINE/SOD CL,ISO/PF 200 MG/10 ML SYRINGE FS ONE (18:24)
[2024-06-19] MEDS ORDERED: Dexamethasone 20 MG/5 ML VIAL ONE (18:24)
[2024-06-19] MEDS ORDERED: Rocuronium Bromide 10 MG/ML (10ML VIAL) ONE (18:24)
[2024-06-19] MEDS ORDERED: Lidocaine 1% PF 5 ML VIAL ONE (18:24)
[2024-06-19] MEDS ORDERED: SUGAMMADEX SODIUM 200 MG/2 ML VIAL ONE (18:56)
[2024-06-19] MEDS ORDERED: Ketorolac Tromethamine 30 MG (1 mL) VIAL ONE (18:56)
[2024-06-19] MEDS ORDERED: fentaNYL 50 mcg/mL 1 mL Vial ONE ×2 (20:19→20:45)
[2024-06-19] MEDS ORDERED: Morphine 4 MG/ML VIAL ONE (21:02)
[2024-06-19] MEDS ORDERED: Morphine 2 MG/ML VIAL ONE (21:17)
[2024-06-20] MEDS: Piperacillin/Tazobactam 3.375 GM VIAL ONE (00:28)
[2024-06-20 05:11] LABS: #Basophils Less than 0.03 10x3/uL (0.0-0.2); #Eosinophils Less than 0.03 10x3/uL (0.0-0.7); %Basophils 0.1 % (0.0-1.0); %Lymphocytes 7.3 % (21.0-51.0); %Monocytes 1.5 % (0.0-10.0); %Neutrophils 90.6 % (42.0-75.0); Hemoglobin 11.5 g/dL (12.0-16.0); Mean Corpuscular HGB CONC 32.9 g/dL (32.0-36.0); Mean Corpuscular Hemoglobin 28.5 pg (27.0-31.0); Mean Corpuscular Volume 86.6 fL (78.0-98.0); Mean Platelet Volume 8.8 fL (7.4-10.4); Platelet Count 258 10x3/uL (130-400); RBC Distribution Width 12.7 % (11.5-14.5); Red Blood Cell (RBC) Count 4.04 mill/uL (4.20-5.40)
[2024-06-20 05:21] LABS: ALT (SGPT) 47 U/L (8-55); AST (SGOT) 49 U/L (5-34); Albumin 3.5 g/dL (3.5-5.0); Alkaline Phosphatase 41 U/L (40-110); Anion Gap 10 mmol/L (10-20); BUN (Urea Nitrogen) 6 mg/dL (7.0-18.7); Calc. Creatinine Clearance 117 mL/min (70-130); Calcium 8.2 mg/dL (7.8-10.44); Carbon Dioxide 20 mmol/L (22-29); Chloride 110 mmol/L (98-107); Estimated GFR 116; Globulin 2.6 g/dL (2.4-3.5); Glucose 134 mg/dL (70-105); Protein, Total 6.1 g/dL (6.0-8.3); Sodium 136 mmol/L (136-145)
[2024-06-20 11:27] VITALS: BP 117/80; TEMP 98.1
== END 2024-06-20 14:30 | disposition home or self-care (01) ==
LOC: ERS 20:02 → SURG B 06-19 01:12 → INTOOBSV 06-19 01:12
PROVIDERS: ADMIT Surgery; ATTEND Surgery
PROC: 0FT44ZZ Resection of Gallbladder, Percutaneous Endoscopic Approach (ICD-10-PCS; principal; 2024-06-20)
DX: K80.12 Calculus of gallbladder with acute and chronic cholecystitis without obstruction (principal); Z88.5 Allergy status to narcotic agent
CPT/HCPCS: 36415; 74177; 76705; 80053; 81001; 83690; 84703; 85025; 88304; 96374; 96375; A6258; C1713; J0171; J0665; J0694; J1100; J1885; J2272; J2405; J2543; J2550; J2704; J3010; J3490; J7030; Q9967

== ENCOUNTER 2024-09-13 08:08 | Emergency (ER) | payer SELFPAY ==
[2024-09-13] MEDS ORDERED: Ketorolac Tromethamine 30 MG (1 mL) VIAL ONE (08:44)
[2024-09-13] MEDS ORDERED: Ondansetron PF 4 MG/2 ML Vial ONE (08:44)
[2024-09-13 08:51] LABS: #Basophils Less than 0.03 10x3/uL (0.0-0.2); #Eosinophils Less than 0.03 10x3/uL (0.0-0.7); %Basophils 0.2 % (0.0-1.0); %Eosinophils 0.1 % (0.0-10.0); %Lymphocytes 4.8 % (21.0-51.0); %Monocytes 2.7 % (0.0-10.0); %Neutrophils 91.9 % (42.0-75.0); Hematocrit 42.9 % (36.0-47.0); Hemoglobin 14.5 g/dL (12.0-16.0); Mean Corpuscular HGB CONC 33.8 g/dL (32.0-36.0); Mean Corpuscular Hemoglobin 27.5 pg (27.0-31.0); Mean Corpuscular Volume 81.4 fL (78.0-98.0); Mean Platelet Volume 8.9 fL (7.4-10.4); Platelet Count 292 10x3/uL (130-400); RBC Distribution Width 13.1 % (11.5-14.5); Red Blood Cell (RBC) Count 5.27 mill/uL (4.20-5.40)
[2024-09-13 09:01] LABS: BHCG - Serum Negative (NEGATIVE); Pregs Control Background? CLEAR/WHITE (CLR/WHITE); Pregs Control Bar Appear? YES (CONTROL BAR)
[2024-09-13 09:09] LABS: ALT (SGPT) 115 U/L (8-55); AST (SGOT) 71 U/L (5-34); Albumin 4.6 g/dL (3.5-5.0); Alkaline Phosphatase 59 U/L (40-110); Anion Gap 14 mmol/L (10-20); BUN (Urea Nitrogen) 15 mg/dL (7.0-18.7); Bilirubin, Total 2.1 mg/dL (0.2-1.2); Calc. Creatinine Clearance 0 mL/min (70-130); Calcium 9.8 mg/dL (7.8-10.44); Carbon Dioxide 21 mmol/L (22-29); Chloride 107 mmol/L (98-107); Estimated GFR 118; Globulin 4.2 g/dL (2.4-3.5); Glucose 130 mg/dL (70-105); Lipase 15 U/L (8-78); Potassium 3.8 mmol/L (3.5-5.1); Protein, Total 8.8 g/dL (6.0-8.3); Sodium 138 mmol/L (136-145)
[2024-09-13] MEDS ORDERED: Iopamidol-370 76% 500 ML MDV (1 ML CHARGE) ONE (15:10)
== END 2024-09-13 10:43 | disposition home or self-care (01) ==
LOC: ERS 08:08
DX: R11.2 Nausea with vomiting, unspecified (principal); A08.4 Viral intestinal infection, unspecified; R74.8 Abnormal levels of other serum enzymes
CPT/HCPCS: 74177; 80053; 83690; 84703; 85025; 96361; 96374; 96375; J1885; J2405; Q9967